=== PATIENT | female | born 1970 | race Two or more races ===

== ENCOUNTER 2024-02-08 11:26 | Inpatient (IN) | payer OTHER ==
[~2024-02-08] VITALS: Ht 170.2 cm; Wt 66.2 kg
--- NOTE | 2024-02-08 11:48 | NUR ---
PACIENTE ALERTA Y ORIENTADA X 3. REFIERE 2 SEMANAS CON DOLOR PELVICO LADO DERECHO QUE HOY INTENSIFICO.
[2024-02-08] MEDS ORDERED: ZETIA10 MG (11:49)
[2024-02-08] MEDS ORDERED: NEURONTIN300 MG PO (11:49)
[2024-02-08] MEDS ORDERED: DIAZEPAM5 MG PO (11:50)
[2024-02-08] MEDS ORDERED: ONDANSETRON HCL 2 MG/ML VIAL IV STA (12:57)
[2024-02-08] MEDS ORDERED: MEPERIDINE HCL/PF 50 MG/ML VIAL IM ONE (13:00)
[2024-02-08] MEDS ORDERED: 0.9 % SODIUM CHLORIDE 1,000 ML IV SCH ×2 (13:00→20:15)
[2024-02-08 13:36] LABS: HEMATOCRIT 38.1 % (36.0-45.00); HEMOGLOBIN 13.2 g/dL (12.0-15.00); MEAN CORPUSCULAR HEMOGLOBIN 29.5 pg (27.00-32.0); MEAN CORPUSCULAR HGB CONC 34.8 g/dl (32.0-36.0); PLATELET COUNT 142 K/uL (150-450); RED BLOOD COUNT 4.48 M/uL (4.00-6.00); RED CELL DISTRIBUTION WIDTH 14.2 % (11.5-14.5)
--- NOTE | 2024-02-08 13:38 | NUR ---
PTE EVALUADO POR MD NOE ORDEN ATX MED A PTE SE EDUCA A PTE SOBRE EL MISMO Y PTE REFEIRE ENTENDER. SE LLEVA ACABO ORDENES BAJO MEDIDAS ASEPTICAS. PTEP END A RESULTADOS DE LABS Y REALIZACION DE SONO.
[2024-02-08 14:07] LABS: CALCIUM 9.8 mg/dL (8.5-10.1); CREATININE SERUM 0.7 mg/dL (0.55-1.02); GFR 87.2; POTASSIUM 3.24 mEq/L (3.5-5.1)
[2024-02-08] MEDS ORDERED: MORPHINE SULFATE 4 MG/ML CARTRIDGE IV ONE (15:00)
[2024-02-08] MEDS ORDERED: METHYLPREDNISOLONE SOD SUCC 125 MG VIAL IV ONE (18:15)
[2024-02-08] MEDS ORDERED: ONDANSETRON HCL 4 MG in 0.9 % SODIUM CHLORIDE 50 ML IV PRN (20:15)
[2024-02-08] MEDS ORDERED: MORPHINE SULFATE 4 MG/ML CARTRIDGE IV PRN (20:15)
[2024-02-08] MEDS ORDERED: ACETAMINOPHEN 500 MG GEL..CAP PO PRN (20:15)
[2024-02-08 20:20] LABS: INR 1.05; PARTIAL THROMBOPLASTIN TIME 28.2 SECONDS (22.0-34.0); PROTHROMBIN TIME 11.4 SECONDS (9.0-11.5)
[2024-02-08 20:21] LABS: URINE APPEARANCE Clear; URINE BILIRRUBIN Negative (NEGATIVE); URINE BLOOD Negative; URINE COLOR Yellow; URINE GLUCOSE Negative (NEGATIVE); URINE KETONE 15 (NEGATIVE); URINE LEUKOCYTE Negative; URINE NITRATE Negative; URINE PROTEIN Negative (NEGATIVE); URINE UROBILINOGEN 0.2 E.U./dl
[2024-02-08 20:24] LABS: URINE RBC 5.1 uL (0.0-20.8); URINE WBC 3.8 uL (0.0-23.2)
[2024-02-08] MEDS ORDERED: CEFTRIAXONE SODIUM 2,000 MG in 0.9 % SODIUM CHLORIDE 100 ML IV SCH (20:33)
[2024-02-08 20:35] LABS: URINE EPITHELIAL CELLS 0.6 uL (0.0-38.8)
[2024-02-08] MEDS ORDERED: VISTASEAL DUAL APPICATOR 1 EACH APPL TOP ONE (23:30)
[2024-02-08] MEDS ORDERED: THROMBIN,HU/FIBRINOGEN/CALCIUM 10 ML SYRINGE TOP ONE (23:30)
[2024-02-08] MEDS ORDERED: POVIDONE-IODINE 118 ML BOTT TOP ONE (23:30)
[2024-02-09] MEDS ORDERED: RINGERS SOLUTION,LACTATED 1,000 ML IV SCH (00:15)
[2024-02-09] MEDS ORDERED: KETOROLAC TROMETHAMINE 30 MG VIAL IV ONE ×2 (00:15→02:10)
[2024-02-09] MEDS ORDERED: ONDANSETRON HCL 2 MG/ML VIAL IV PRN (00:15)
[2024-02-09] MEDS ORDERED: MORPHINE SULFATE 4 MG/ML CARTRIDGE IV PRN (00:15)
[2024-02-09] MEDS ORDERED: GABAPENTIN 300 MG CAPSULE PO SCH (01:00)
[2024-02-09] MEDS ORDERED: CEFAZOLIN SODIUM 1,000 MG VIAL IV SCH (01:00)
[2024-02-09] MEDS ORDERED: METRONIDAZOLE/SODIUM CHLORIDE 500 MG/100 ML PIGGYBACK IV SCH (01:00)
[2024-02-09 03:12] LABS: HEMATOCRIT 34.8 % (36.0-45.00); HEMOGLOBIN 11.9 g/dL (12.0-15.00); MEAN CORPUSCULAR HEMOGLOBIN 29.3 pg (27.00-32.0); MEAN CORPUSCULAR HGB CONC 34.1 g/dl (32.0-36.0); RED BLOOD COUNT 4.05 M/uL (4.00-6.00); RED CELL DISTRIBUTION WIDTH 13.9 % (11.5-14.5)
[2024-02-09 03:28] LABS: PLATELET COUNT 129 K/uL (150-450)
[2024-02-09 03:30] VITALS: BP 106/78
[2024-02-09 03:38] LABS: ALBUMIN 3.5 gm/dL (3.4-5.0); CALCIUM 8.4 mg/dL (8.5-10.1); CREATININE SERUM 0.74 mg/dL (0.55-1.02); GFR 81.78; PHOSPHOROUS 3.9 mg/dL (2.5-4.9); POTASSIUM 3.32 mEq/L (3.5-5.1)
[2024-02-09 03:47] VITALS: O2SAT 100
[2024-02-09] MEDS ORDERED: KETOROLAC TROMETHAMINE 30 MG VIAL IM SCH (06:00)
[2024-02-09] MEDS ORDERED: OxyCODONE HCL/APAP UD (PERCOCET) PO PRN (06:15)
[2024-02-09] MEDS ORDERED: MORPHINE SULFATE 4 MG/ML VIAL IV ONE (06:15)
[2024-02-09] MEDS ORDERED: FAMOTIDINE/PF 20 MG/2 ML VIAL IV PUSH SCH (09:00)
[2024-02-09] MEDS ORDERED: PANTOPRAZOLE SODIUM 40 MG/VIAL VIAL IV SCH (09:00)
[2024-02-09 09:18] VITALS: BP 102/60
[2024-02-09 16:00] VITALS: BP 103/62
[2024-02-09] MEDS ORDERED: ENOXAPARIN SODIUM 40 MG/0.4 ML SYRINGE SUBCUTANEO SCH (17:00)
[2024-02-10] VITALS: BP 92/56
[2024-02-10 06:32] LABS: HEMATOCRIT 28.8 % (36.0-45.00); HEMOGLOBIN 10.1 g/dL (12.0-15.00); MEAN CELL VOLUME 86.2 fL (80.00-100.00); MEAN CORPUSCULAR HEMOGLOBIN 30.4 pg (27.00-32.0); MEAN CORPUSCULAR HGB CONC 35.2 g/dl (32.0-36.0); RED BLOOD COUNT 3.34 M/uL (4.00-6.00); RED CELL DISTRIBUTION WIDTH 14.1 % (11.5-14.5)
[2024-02-10 06:33] LABS: PLATELET COUNT 111 K/uL (150-450)
[2024-02-10 07:34] LABS: ALBUMIN 3.3 gm/dL (3.4-5.0); CALCIUM 8.6 mg/dL (8.5-10.1); CREATININE SERUM 0.62 mg/dL (0.55-1.02); GFR 100.31; POTASSIUM 3.63 mEq/L (3.5-5.1)
[2024-02-10 07:38] LABS: PHOSPHOROUS 1.5 mg/dL (2.5-4.9)
[2024-02-10 08:00] VITALS: BP 109/68
== END 2024-02-10 09:39 | disposition home or self-care (01) | DRG 743 ==
LOC: ER 11:28 → OB/GYN 20:32
PROVIDERS: Emergency Medicine; Obstetrics & Gynecology; ADMIT Obstetrics & Gynecology Gynecologic Oncology; ATTEND Obstetrics & Gynecology Gynecologic Oncology
PROC: 0UT74ZZ Resection of Bilateral Fallopian Tubes, Percutaneous Endoscopic Approach (ICD-10-PCS; 2024-02-08)
PROC: 0UT24ZZ Resection of Bilateral Ovaries, Percutaneous Endoscopic Approach (ICD-10-PCS; 2024-02-08)
PROC: 0DBW4ZZ Excision of Peritoneum, Percutaneous Endoscopic Approach (ICD-10-PCS; 2024-02-08)
PROC: 07BC4ZZ Excision of Pelvis Lymphatic, Percutaneous Endoscopic Approach (ICD-10-PCS; 2024-02-08)
PROC: 0DBU4ZZ Excision of Omentum, Percutaneous Endoscopic Approach (ICD-10-PCS; 2024-02-08)
PROC: 0UT94ZZ Resection of Uterus, Percutaneous Endoscopic Approach (ICD-10-PCS; principal; 2024-02-08 21:30)
DX: N85.01 Benign endometrial hyperplasia (principal); D27.1 Benign neoplasm of left ovary; Z20.822 Contact with and (suspected) exposure to COVID-19; R10.2 Pelvic and perineal pain; N83.8 Other noninflammatory disorders of ovary, fallopian tube and broad ligament; Z85.3 Personal history of malignant neoplasm of breast; E87.5 Hyperkalemia
CPT/HCPCS: 72196